=== PATIENT | male | born 1975 | race Two or more races ===

== ENCOUNTER → 2025-05-29 | Emergency (ER) | payer OTHER ==
[~2025-05-29] VITALS: Ht 185.4 cm; Wt 95.3 kg
[~2025-05-29] MED LIST: AMOX-CLAV 875-1 EACH PO; CEFTRIAXONE SODIUM 1,000 MG VIAL IM ONE; CEFTRIAXONE SODIUM 1,000 MG VIAL ONE; DIPHTH,PERTUSS(ACELL),TET VAC 0.5 ML SYRINGE IM ONE; TETANUS & DIPHTHERIA TOX,ADULT 0.5 ML VIAL IM ONE
== END | disposition home or self-care (01) ==
LOC: ER 13:15
DX: S41.151A Open bite of right upper arm, initial encounter (principal); W54.0XXA Bitten by dog, initial encounter; Y93.89 Activity, other specified; Y92.89 Other specified places as the place of occurrence of the external cause
CPT/HCPCS: 90471; 90714; 96372; 99282; J0696; J1670